=== PATIENT | female | born 1980 | race Caucasian/White ===

== ENCOUNTER → 2016-09-02 | Outpatient (CLI) | payer MEDICARE, MEDICAID | LOC: RAD 12:31 | PROVIDERS: ATTEND Physician Assistant | DX: M25.511 Pain in right shoulder (principal) ==

== ENCOUNTER → 2016-11-21 | Day surgery (SDC) | payer MEDICARE, MEDICAID ==
--- NOTE | 2016-11-21 13:37 | RADIOLOGY REPORT (SQ) ---
EXAM DESCRIPTION: ARTHRO SHOULDER INJECTION COMPLETE DATE/TIME: 11/21/2016 1:23 pm REASON FOR STUDY: L SHOULDER PAIN M25.512 PAIN IN LEFT SHOULDER FINDINGS: Please see combined report for performance of procedure and radiologic supervision and int erpretation. IMPRESSION: Please see combined report for performance of procedure and radiologic supervision and i nterpretation.
--- NOTE | 2016-11-21 13:40 | RADIOLOGY REPORT (SQ) ---
EXAM DESCRIPTION: FLUORO/NEEDLE PLACEMENT COMPLETED DATE/TIME: 11/21/2016 1:23 pm REASON FOR STUDY: L SHOULDER PAIN M25.512 PAIN IN LEFT SHOULDER COMPARISON: None. FLUOROSCOPY TIME: 10 seconds 1 images saved to PACS. LIMITATIONS: None. PROCEDURE: Procedure, risks, benefits and alternatives explained to patient who then gave written co nsent. The left shoulder was marked and a time out was called for correct procedure verification. Po sterior entry site marked using fluoroscopic guidance. Shoulder prepped and draped using sterile danyell hnique. Local anesthesia achieved using 1% lidocaine injection. Hypodermic needle introduced into t he joint space under direct fluoroscopic visualization. Non-ionic contrast instilled to confirm intra -articular position. Dilute gadolinium solution then injected. Needle removed and entry site covered with sterile bandage. No immediate complications noted. TECHNIQUE: Digital images acquired during fluoroscopy and stored on PACS. Patient immediately take n to the MR suite for additional imaging. INJECTION LOCATION: Posterior CONTRAST TYPE AND AMOUNT: 10 mL ProHance solution IMPRESSION: SUCCESSFUL NEEDLE PLACEMENT AND INJECTION FOR left SHOULDER MR ARTHROGRAM USING POSTERIO R APPROACH. COMMENT: Quality ID [id number]: Final reports for procedures using fluoroscopy that document radiation exp osure indices, or exposure time and number of fluorographic images (if radiation exposure indices are not available) TECHNICAL DOCUMENTATION: JOB ID: [id number] [employer]- All Rights Reserved
--- NOTE | 2016-11-22 02:15 | RADIOLOGY REPORT (SQ) ---
EXAM DESCRIPTION: MRI LT UPPER JOINT WITH COMPLETED DATE/TIME: 11/21/2016 2:05 pm REASON FOR STUDY: L SHOULDER PAIN M25.512 PAIN IN LEFT SHOULDER COMPARISON: Plain radiographs TECHNIQUE: Left shoulder images acquired and stored on PACS. Oblique coronal, oblique sagittal, and axial imaging to include fat sensitive sequences as T1, water sensitive sequences as FST2/STIR, and c ontrast sensitive sequences as FST1. LIMITATIONS: None. FINDINGS: JOINT DISTENTION: Adequate distention for interpretation. BONE MARROW AND CORTEX: Normal. No significant osteophytes. No edema or defects. AC JOINT: Type 1 acromion.. No significant AC joint arthropathy. GLENOHUMERAL JOINT: No subluxation or dislocation. No focal chondral defects or reactive bone changes . ROTATOR CUFF: Very mild tendinopathy. No discrete partial full-thickness tear. LABRUM AND BICEPS LABRAL COMPLEX: Fraying of the superior labrum. Middle and superior glenohumeral l igaments intact. Biceps tendon intact. INFERIOR LABRAL COMPLEX: Bony glenoid and labrum intact. IGHL intact without thickening or tear. No p aralabral cysts. ADJACENT SOFT TISSUES: No masses or nodes. OTHER: No other significant finding. IMPRESSION: Mild tendinopathy of the supraspinatus. Fraying of the superior labrum. TECHNICAL DOCUMENTATION: JOB ID: [id number] [employer]- All Rights Reserved
== END ==
LOC: RAD 12:51
PROVIDERS: ATTEND Physician Assistant
PROC: BP09ZZZ Plain Radiography of Left Shoulder (ICD-10-PCS; principal; 2016-11-21)
DX: M25.512 Pain in left shoulder (principal); M25.511 Pain in right shoulder
CPT/HCPCS: 23350; 77002

== ENCOUNTER → 2016-11-24 | Day surgery (SDC) | payer MEDICARE, MEDICAID ==
[~2016-11-24] MED LIST: LIDOCAINE 1% INJ-PF (10 MG/ML) 30 ML SDV ONE
--- NOTE | 2016-11-24 14:03 | RADIOLOGY REPORT (SQ) ---
EXAM DESCRIPTION: ARTHRO SHOULDER INJECTION; FLUORO/NEEDLE PLACEMENT COMPLETED DATE/TIME: 11/24/2016 1:41 pm REASON FOR STUDY: RIGHT SHOULDER PAIN (M25.511) M25.511 PAIN IN RIGHT SHOULDER COMPARISON: None. FLUOROSCOPY TIME: 9 seconds. 1 images saved to PACS. LIMITATIONS: None. PROCEDURE: Procedure, risks, benefits and alternatives explained to patient who then gave written co nsent. The right shoulder was marked and a time out was called for correct procedure verification. P osterior entry site marked using fluoroscopic guidance. Shoulder prepped and draped using sterile te chnique. Local anesthesia achieved using 1% lidocaine injection. Hypodermic needle introduced into the joint space under direct fluoroscopic visualization. Non-ionic contrast instilled to confirm intr a-articular position. Dilute gadolinium solution then injected. Needle removed and entry site covere d with sterile bandage. No immediate complications noted. TECHNIQUE: Digital images acquired during fluoroscopy and stored on PACS. Patient immediately take n to the MR suite for additional imaging. INJECTION LOCATION: Posterior right shoulder. CONTRAST TYPE AND AMOUNT: 1 mL Isovue and 10 mL ProHance saline mixture. IMPRESSION: SUCCESSFUL NEEDLE PLACEMENT AND INJECTION FOR RIGHT SHOULDER MR ARTHROGRAM USING POSTERI OR APPROACH. COMMENT: Quality ID 145: Final reports for procedures using fluoroscopy that document radiation exp osure indices, or exposure time and number of fluorographic images (if radiation exposure indices are not available) TECHNICAL DOCUMENTATION: JOB ID: [id number] [employer]- All Rights Reserved
--- NOTE | 2016-11-24 14:40 | RADIOLOGY REPORT (SQ) ---
EXAM DESCRIPTION: MRI RT UPPER JOINT WITH COMPLETED DATE/TIME: 11/24/2016 2:25 pm REASON FOR STUDY: RIGHT SHOULDER PAIN (M25.511) M25.511 PAIN IN RIGHT SHOULDER COMPARISON: 09/02/2016 TECHNIQUE: Right shoulder images acquired and stored on PACS. Oblique coronal, oblique sagittal, and axial imaging to include fat sensitive sequences as T1, water sensitive sequences as FST2/STIR, and contrast sensitive sequences as FST1. LIMITATIONS: None. FINDINGS: JOINT DISTENTION: Adequate distention for interpretation. No contrast in the subacromial bursa. BONE MARROW AND CORTEX: Normal. No significant osteophytes. No edema or defects. AC JOINT: Type II acromion. No significant AC joint arthropathy. GLENOHUMERAL JOINT: No subluxation or dislocation. No focal chondral defects or reactive bone changes . ROTATOR CUFF: Mild tendinopathy. Small amount of peritendinous fluid anteriorly. LABRUM AND BICEPS LABRAL COMPLEX: Prior slap repair. Distal biceps in normal anatomic location in bic ipital groove. No paralabral cysts. INFERIOR LABRAL COMPLEX: Intact. ADJACENT SOFT TISSUES: No masses or nodes. OTHER: No other significant finding. IMPRESSION: Mild tendinopathy and peritendinitis. No significant rotator cuff tear. Intact slap re pair. TECHNICAL DOCUMENTATION: JOB ID: [id number] [employer]- All Rights Reserved
== END ==
LOC: RAD 12:40
PROVIDERS: ATTEND Physician Assistant
PROC: BP08ZZZ Plain Radiography of Right Shoulder (ICD-10-PCS; principal; 2016-11-24)
DX: M25.511 Pain in right shoulder (principal); M77.9 Enthesopathy, unspecified; M25.512 Pain in left shoulder
CPT/HCPCS: 73222; 77002; 23350; A9576; J3490

== ENCOUNTER 2016-12-02 13:53 | Emergency (ER) | payer MEDICARE, MEDICAID ==
[2016-12-02 14:03] VITALS: BP 124/86
--- NOTE | 2016-12-02 14:27 | ER Document Report ---
ED Medical Screen (RME) - General Chief Complaint: Dizziness Stated Complaint: CHEST PAIN Time Seen by Provider: 12/02/16 14:24 Notes: Patient states that she took a shot for arthritis yesterday for the first time called Alena. States after that she began to have episodes of chest pain shortness of breath and feel very anxious. She is also been lightheaded and dizzy. She states she has had some nausea. No vomiting or diarrhea. Patient states that she has had 3 previous pulmonary embolisms but none for approximately 3-4 years. She states she does not take any blood thinners because everyone she was tried on made her short of breath and made her heart race. TRAVEL OUTSIDE OF THE [place] IN LAST 30 DAYS: No - Related Data Allergies/Adverse Reactions: adhesive tape [Adhesive Tape] Allergy (Verified 07/12/15 18:47) celecoxib [From Celebrex] Allergy (Verified 07/12/15 18:47) ciprofloxacin [From Cipro] Allergy (Verified 07/12/15 18:47) ciprofloxacin HCl [From Cipro] Allergy (Verified 07/12/15 18:47) doxycycline [Doxycycline] Allergy (Verified 07/12/15 18:47) famotidine [Famotidine] Allergy (Verified 07/12/15 18:47) latex [Latex] Allergy (Verified 07/12/15 18:47) nitrofurantoin [Nitrofurantoin] Allergy (Verified 12/02/16 14:16) nitrofurantoin macrocrystalline [From Macrobid] Allergy (Verified 12/02/16 14:16 ) prazepam [Prazepam] Allergy (Verified 12/02/16 14:16) red dye [Red Dye] Allergy (Verified 12/02/16 14:16) sulfamethoxazole [From Bactrim] Allergy (Verified 12/02/16 14:16) tiotropium bromide [From Spiriva with HandiHaler] Allergy (Verified 12/02/16 14: 16) trimethoprim [From Bactrim] Allergy (Verified 12/02/16 14:16) varenicline tartrate [From Chantix] Allergy (Verified 12/02/16 14:16) warfarin [Warfarin] Allergy (Verified 12/02/16 14:16) cyclobenzaprine HCl [From Flexeril] Adverse Reaction (Verified 12/02/16 14:16) duloxetine HCl [From Cymbalta] Adverse Reaction (Verified 12/02/16 14:16) nicotine [Nicotine] Adverse Reaction (Verified 12/02/16 14:16) Past Medical History - Past Medical History Cardiac Medical History: Reports: Hx Pulmonary Embolism Pulmonary Medical History: Reports: Hx Asthma, Hx COPD Renal/ Medical History: Denies: Hx Peritoneal Dialysis Musculoskeltal Medical History: Reports Hx Arthritis - RA and OA Past Surgical History: Reports: Hx Hysterectomy - Immunizations Immunizations up to date: Yes Hx Diphtheria, Pertussis, Tetanus Vaccination: Yes Physical Exam - Vital signs Vitals: Temp Pulse Resp BP Pulse Ox 98.3 F 75 14 124/86 H 99 12/02/16 14:00 12/02/16 14:00 12/02/16 14:00 12/02/16 14:00 12/02/16 14:00 Course - Vital Signs Vital signs: Temp Pulse Resp BP Pulse Ox 98.3 F 75 14 124/86 H 99 12/02/16 14:00 12/02/16 14:00 12/02/16 14:00 12/02/16 14:00 12/02/16 14:00
[2016-12-02 15:42] LABS: APPEARANCE,URINE SLIGHTLY-CLOUDY; BILIRUBIN,URINE SMALL (NEGATIVE); CALCIUM OXALATE CRYSTALS,URINE MODERATE /HPF; GLUCOSE, URINE NEGATIVE (NEGATIVE); KETONES,URINE TRACE mg/dL (NEGATIVE); LEUKOCYTE ESTERASE,URINE NEGATIVE (NEGATIVE); NITRITE,URINE NEGATIVE (NEGATIVE); PROTEIN,URINE NEGATIVE (NEGATIVE); URINE SPECIFIC GRAVITY 1.032
== END 2016-12-02 15:00 | disposition left against medical advice (07) ==
LOC: ER 13:53
DX: R07.9 Chest pain, unspecified (principal); F41.9 Anxiety disorder, unspecified; J44.9 Chronic obstructive pulmonary disease, unspecified; R06.02 Shortness of breath; M19.90 Unspecified osteoarthritis, unspecified site; M06.9 Rheumatoid arthritis, unspecified; R42 Dizziness and giddiness; R11.0 Nausea; Z86.711 Personal history of pulmonary embolism; Z91.048 Other nonmedicinal substance allergy status; Z88.1 Allergy status to other antibiotic agents; Z91.040 Latex allergy status; Z88.8 Allergy status to other drugs, medicaments and biological substances; Z53.20 Procedure and treatment not carried out because of patient's decision for unspecified reasons
CPT/HCPCS: 81001; 99281

== ENCOUNTER 2017-02-22 11:11 | Emergency (ER) | payer MEDICARE, MEDICAID ==
[2017-02-22 11:18] VITALS: BP 120/82
--- NOTE | 2017-02-22 11:30 | ER Document Report ---
ED Medical Screen (RME) - General Chief Complaint: Chest Pain Stated Complaint: CHEST PAIN Time Seen by Provider: 02/22/17 11:24 Notes: 36-year-old female patient who continues to smoke with history of multiple pulmonary emboli and COPD complains of left-sided chest pain and brown productive cough. She reports her roommate started with this illness just over a week ago, and then she caught it. There is no fever. There is no shortness of breath. She does have a history of rheumatoid arthritis. I have greeted and performed a rapid initial assessment of this patient. A comprehensive ED assessment and evaluation of the patient, analysis of test results and completion of the medical decision making process will be conducted by additional ED providers. TRAVEL OUTSIDE OF THE [place] IN LAST 30 DAYS: No - Related Data Allergies/Adverse Reactions: adhesive tape [Adhesive Tape] Allergy (Verified 02/22/17 11:16) celecoxib [From Celebrex] Allergy (Verified 02/22/17 11:16) ciprofloxacin [From Cipro] Allergy (Verified 02/22/17 11:16) ciprofloxacin HCl [From Cipro] Allergy (Verified 02/22/17 11:16) doxycycline [Doxycycline] Allergy (Verified 02/22/17 11:16) famotidine [Famotidine] Allergy (Verified 02/22/17 11:16) latex [Latex] Allergy (Verified 02/22/17 11:16) nitrofurantoin [Nitrofurantoin] Allergy (Verified 02/22/17 11:16) nitrofurantoin macrocrystalline [From Macrobid] Allergy (Verified 02/22/17 11:16 ) prazepam [Prazepam] Allergy (Verified 02/22/17 11:16) red dye [Red Dye] Allergy (Verified 02/22/17 11:16) sulfamethoxazole [From Bactrim] Allergy (Verified 02/22/17 11:16) tiotropium bromide [From Spiriva with HandiHaler] Allergy (Verified 02/22/17 11: 16) trimethoprim [From Bactrim] Allergy (Verified 02/22/17 11:16) varenicline tartrate [From Chantix] Allergy (Verified 02/22/17 11:16) warfarin [Warfarin] Allergy (Verified 02/22/17 11:16) cyclobenzaprine HCl [From Flexeril] Adverse Reaction (Verified 02/22/17 11:16) duloxetine HCl [From Cymbalta] Adverse Reaction (Verified 02/22/17 11:16) nicotine [Nicotine] Adverse Reaction (Verified 02/22/17 11:16) Past Medical History - Past Medical History Cardiac Medical History: Reports: Hx Pulmonary Embolism Pulmonary Medical History: Reports: Hx Asthma, Hx COPD Renal/ Medical History: Denies: Hx Peritoneal Dialysis Musculoskeltal Medical History: Reports Hx Arthritis - RA and OA Past Surgical History: Reports: Hx Hysterectomy - Immunizations Immunizations up to date: Yes Hx Diphtheria, Pertussis, Tetanus Vaccination: Yes Physical Exam - Vital signs Vitals: Temp Pulse Resp BP Pulse Ox 97.9 F 99 20 120/82 98 02/22/17 11:16 02/22/17 11:16 02/22/17 11:16 02/22/17 11:16 02/22/17 11:16 Course - Vital Signs Vital signs: Temp Pulse Resp BP Pulse Ox 97.9 F 99 20 120/82 98 02/22/17 11:16 02/22/17 11:16 02/22/17 11:16 02/22/17 11:16 02/22/17 11:16
[2017-02-22] MEDS ORDERED: PROMETHAZINE HCL 25 MG TABLET PO ONE (12:03)
[2017-02-22] MEDS ORDERED: ALBUTEROL SULFATE 0.083% NEB 2.5 MG/3 ML AMPUL NEB ONE (12:03)
--- NOTE | 2017-02-22 12:06 | ER Document Report ---
HPI - HPI Patient complains to provider of: Chest pain, cough, nausea Onset: Other Onset/Duration: Waxing and waning - 2 days Quality of pain: Achy Pain Level: 4 Context: Patient presents complaining of chest pain off and on for the past 2 days with productive cough with brown sputum. Patient does report sore throat, congestion , and nausea. Patient reports subjective fever since yesterday. Patient does report recent sick contact in the household with upper respiratory symptoms. Patient denies any use of drugs. Patient states she did go to an urgent care yesterday and was told that she had elevated blood pressure at that visit and had a negative strep test in the office and was given a prescription for azithromycin. Patient states she has not picked the prescription up yet. Associated Symptoms: Chest pain - Worse with cough, Productive cough, Fever - Subjective, Rhinnorhea, Sore throat Exacerbated by: Coughing Relieved by: Denies Similar symptoms previously: Yes Recently seen / treated by doctor: Yes - ROS ROS below otherwise negative: Yes Systems Reviewed and Negative: Yes All other systems reviewed and negative - CONSTITUTIONAL Constitutional: REPORTS: Fever, Chills - EENT EENT: REPORTS: Sore Throat, Nasal Drainage-Clear, Congestion - CARDIOVASCULAR Cardiovascular: REPORTS: Chest pain - RESPIRATORY Respiratory: REPORTS: Coughing. DENIES: Trouble Breathing - GASTROINTESTINAL Gastrointestinal: DENIES: Abdominal Pain, Nausea, Patient vomiting - REPRODUCTIVE Reproductive: DENIES: : - MUSCULOSKELETAL Musculoskeletal: DENIES: Back Pain - DERM Skin Color: Normal Skin Problems: None Past Medical History - General Information source: Patient - Social History Smoking Status: Current Every Day Smoker Chew tobacco use (# tins/day): No Frequency of alcohol use: None Drug Abuse: None Occupation: auto parts delivery driver Lives with: Spouse/Significant other Family History: Reviewed & Not Pertinent - Past Medical History Cardiac Medical History: Reports: Hx Pulmonary Embolism Pulmonary Medical History: Reports: Hx Asthma, Hx COPD Renal/ Medical History: Denies: Hx Peritoneal Dialysis Musculoskeltal Medical History: Reports Hx Arthritis - RA and OA Psychiatric Medical History: Reports: Hx Anxiety Past Surgical History: Reports: Hx Gynecologic Surgery - endometrial ablasion, Hx Hysterectomy, Hx Orthopedic Surgery - bilateral shoulder - Immunizations Immunizations up to date: Yes Hx Diphtheria, Pertussis, Tetanus Vaccination: Yes Vertical Provider Document - CONSTITUTIONAL Agree With Documented VS: Yes Exam Limitations: No Limitations General Appearance: WD/WN, No Apparent Distress - INFECTION CONTROL TRAVEL OUTSIDE OF THE [place] IN LAST 30 DAYS: No - HEENT HEENT: Atraumatic, Normocephalic, Pharyngeal Tenderness, Pharyngeal Erythema. negative: Pharyngeal Exudate, Tympanic Membrane Red, Tympanic Membrane Bulging - NECK Neck: Normal Inspection, Supple. negative: Lymphadenopathy-Left, Lymphadenopathy-Right - RESPIRATORY Respiratory: No Respiratory Distress, Wheezing - faint with cough only. negative: Chest Non-Tender - anterior chest tenderness with palpation and cough O2 Sat by Pulse Oximetry: 98 - CARDIOVASCULAR Cardiovascular: Regular Rate, Regular Rhythm, No Murmur - GI/ABDOMEN Gastrointestinal: Abdomen Soft, Abdomen Non-Tender - BACK Back: Normal Inspection. negative: CVA Tenderness-Right, CVA Tenderness-Left - MUSCULOSKELETAL/EXTREMETIES Musculoskeletal/Extremeties: MAEW - NEURO Level of Consciousness: Awake, Alert, Appropriate Motor/Sensory: No Motor Deficit - DERM Integumentary: Warm, Dry, No Rash Course - Re-evaluation Re-evalutation: 02/22/17 12:05 Patient refuses any oral steroids. Patient states that she does not likely her body's response to steroids and that she never takes them for her asthma or her RA. 02/22/17 12:53 Patient refuses any strep testing stating that she had this test performed yesterday and it was negative. Patient refuses any albuterol nebulizer treatment to help with her wheezing stating that she has an inhaler at home that she can use. Patient refuses to collect a sputum specimen stating that she only had a productive cough this morning but cough is no longer productive. Patient states that she does not understand why these things were ordered. Explained to patient that given her history, presentation and exam findings that attempts were made to treat her wheezing symptoms. Offered patient blood work testing to further evaluate her symptoms as she repeatedly states she just wants to know what is going on. Patient advised that she presents with symptoms typical of a viral upper respiratory infection that may be worsening her asthma/COPD symptoms; given her recent sick contact exposure, wheezing and reproducible chest pain symptoms with palpation as well as coughing. Patient declines any blood work testing stating that she will follow-up with her primary doctor as an outpatient as already planned. Patient states that she is concerned because she had elevated blood pressure that was 150 systolic yesterday at the urgent care. Patient advised that her blood pressure today was 120/82. Patient encouraged to keep a log of her vital signs to present to her primary doctor when she follows up. Patient advised that her blood pressure does not presently warrant any treatment at this time. Again patient offered additional testing, patient declines and would like to be discharged home. Consulted with Dr. Larson regarding patient presentation as well as exam findings and diagnostic evaluation. Discussed patient's refusal of testing. Dr. Larson evaluated patient in the provider in triage area and agrees that patient presents with symptoms consistent with an upper respiratory infection. Dr. Larson does not advise any additional testing at this time. - Vital Signs Vital signs: Temp Pulse Resp BP Pulse Ox 97.9 F 99 20 120/82 98 02/22/17 11:16 02/22/17 11:16 02/22/17 11:16 02/22/17 11:16 02/22/17 11:16 - Diagnostic Test Radiology reviewed: Reports reviewed - EKG Interpretation by Id EKG shows normal: Sinus rhythm When compared to previous EKG there are: No significant change Discharge - Discharge Clinical Impression: Bronchospasm Upper respiratory infection Qualifiers: URI type: unspecified URI Qualified Code(s): J06.9 - Acute upper respiratory infection, unspecified Chest pain Qualifiers: Chest pain type: unspecified Qualified Code(s): R07.9 - Chest pain, unspecified Condition: Stable Disposition: HOME, SELF-CARE Instructions: Antinausea Medication ([facility]), Chest Pain of Unclear Cause ([facility]) Additional Instructions: Return immediately for any new or worsening symptoms Followup with your primary care provider, call tomorrow to make a followup appointment Use your albuterol inhaler that you have at home as prescribed Stop smoking Return for any worsening of symptoms or if you would like to continue your diagnostic evaluation UPPER RESPIRATORY ILLNESS: You have a viral infection of the respiratory passages -- a "cold." This common infection causes nasal congestion, drainage, and often sore throat and cough. It is highly contagious. The disease usually lasts about 10 to 14 days. There is no "cure" for the viral infection -- it must run its course. If there is a complication, such as bacterial infection in the nose, sinuses, middle ear, or bronchial tubes, antibiotics may be required. The antibiotics won't affect the virus. Drink plenty of fluids. A humidifier may help. An expectorant medication or decongestant may make you more comfortable. Use acetaminophen or ibuprofen for fever or aches. See the doctor if fever persists over two days, if there is any significant worsening of your symptoms, or if you simply fail to improve as expected. BRONCHOSPASM: You have tightness in the bronchial tubes, called bronchospasm. This often occurs with bronchial infections. Allergies, inhaled chemicals, and polluted or cold air can also provoke bronchospasm. It's more likely in patients with asthma in the family. Emergency treatment of bronchospasm may include adrenaline shots or bronchodilator aerosol. You may feel lightheaded and have a rapid pulse for an hour or two. Rest and get plenty of fluids. At home, we'll treat you with a bronchodilator inhaler. Antibiotics and corticosteroids may be required for some patients. Until you recover, avoid chemical fumes, dusts, pollens, and exercising in very cold or dry air. If you smoke, stop now!! If you develop a fever, increased wheezing, chest pain, or severe shortness of breath, you should contact the doctor immediately. USE OF ACETAMINOPHEN (Tylenol): Acetaminophen may be taken for pain relief or fever control. It's much safer than aspirin, offering a wider range of "safe" dosages. It is safe during . Some brand names are Tylenol, Panadol, Datril, Anacin 3, Tempra, and Liquiprin. Acetaminophen can be repeated every four hours. The following are maximum recommended dosages: >89 pounds or adults 650 mg to 900 mg Acetaminophen can be repeated every four hours. Maximum dose not to exceed 4000 mg a day. SMOKING: If you smoke, you should stop smoking. The tar and chemicals in cigarette smoke are harmful. Smoking has been shown to cause: emphysema chronic bronchitis lung cancer mouth and throat cancer stomach and pancreas cancer premature aging defects In addition, smoking increases ear and lung infections in children of smokers. FOLLOW-UP CARE: If you have been referred to a physician for follow-up care, call the physician s office for an appointment as you were instructed or within the next two days. If you experience worsening or a significant change in your symptoms, notify the physician immediately or return to the Emergency Department at any time for re-evaluation. Prescriptions: Promethazine HCl [Phenergan 25 mg Tablet] 25 mg PO Q6H PRN #10 tablet PRN Reason: Referrals: [facility] [Provider Group] - Follow up as needed [facility] [Provider Group] - Follow up as needed
--- NOTE | 2017-02-22 12:19 | RADIOLOGY REPORT (SQ) ---
EXAM DESCRIPTION: CHEST PA/LAT COMPLETED DATE/TIME: 02/22/2017 11:58 am REASON FOR STUDY: PRODUCTIVE COUGH, lEFT CHEST PAIN COMPARISON: 07/20/2015 EXAM PARAMETERS: NUMBER OF VIEWS: two views TECHNIQUE: Digital Frontal and Lateral radiographic views of the chest acquired. RADIATION DOSE: NA LIMITATIONS: none FINDINGS: LUNGS AND PLEURA: No opacities, masses or pneumothorax. No pleural effusion. MEDIASTINUM AND HILAR STRUCTURES: No masses or contour abnormalities. HEART AND VASCULAR STRUCTURES: Heart normal size. No evidence for failure. BONES: No acute findings. HARDWARE: None in the chest. OTHER: No other significant finding. IMPRESSION: NO SIGNIFICANT RADIOGRAPHIC FINDING IN THE CHEST. TECHNICAL DOCUMENTATION: JOB ID: [id number] [employer]- All Rights Reserved
--- NOTE | 2017-02-22 20:33 | EKG REPORT ---
SEVERITY:- ABNORMAL ECG - SINUS RHYTHM NONSPECIFIC T ABNORMALITIES, INFERIOR LEADS : Confirmed by: Velma Sinha MD 22-Feb-2017 20:32:48
== END 2017-02-22 13:16 | disposition home or self-care (01) ==
LOC: ER 11:11
DX: J02.9 Acute pharyngitis, unspecified (principal); J44.9 Chronic obstructive pulmonary disease, unspecified; J98.01 Acute bronchospasm; R07.9 Chest pain, unspecified; M06.9 Rheumatoid arthritis, unspecified; R05 Cough; R11.0 Nausea; R68.83 Chills (without fever); J34.89 Other specified disorders of nose and nasal sinuses; F17.200 Nicotine dependence, unspecified, uncomplicated; Z86.711 Personal history of pulmonary embolism
CPT/HCPCS: 93005; 99285; 71020; 93010; A9270

== ENCOUNTER 2017-07-28 13:52 | Emergency (ER) | payer MEDICARE, MEDICAID ==
[2017-07-28 14:08] VITALS: BP 130/91
[2017-07-28] MEDS ORDERED: ASPIRIN 81 MG TABLET, CHEWABLE PO ONE (14:43)
--- NOTE | 2017-07-28 14:43 | ER Document Report ---
ED Medical Screen (RME) - General Chief Complaint: Chest Pain Stated Complaint: CHEST PAIN Time Seen by Provider: 07/28/17 14:43 TRAVEL OUTSIDE OF THE [place] IN LAST 30 DAYS: No - Related Data Allergies/Adverse Reactions: adhesive tape [Adhesive Tape] Allergy (Verified 07/28/17 13:53) celecoxib [From Celebrex] Allergy (Verified 07/28/17 13:53) ciprofloxacin [From Cipro] Allergy (Verified 07/28/17 13:53) ciprofloxacin HCl [From Cipro] Allergy (Verified 07/28/17 13:53) doxycycline [Doxycycline] Allergy (Verified 07/28/17 13:53) famotidine [Famotidine] Allergy (Verified 07/28/17 13:53) latex [Latex] Allergy (Verified 07/28/17 13:53) nitrofurantoin [Nitrofurantoin] Allergy (Verified 07/28/17 13:53) nitrofurantoin macrocrystalline [From Macrobid] Allergy (Verified 07/28/17 13:53 ) prazepam [Prazepam] Allergy (Verified 07/28/17 13:53) red dye [Red Dye] Allergy (Verified 07/28/17 13:53) sulfamethoxazole [From Bactrim] Allergy (Verified 07/28/17 13:53) tiotropium bromide [From Spiriva with HandiHaler] Allergy (Verified 07/28/17 13: 53) trimethoprim [From Bactrim] Allergy (Verified 07/28/17 13:53) varenicline tartrate [From Chantix] Allergy (Verified 07/28/17 13:53) warfarin [Warfarin] Allergy (Verified 07/28/17 13:53) cyclobenzaprine HCl [From Flexeril] Adverse Reaction (Verified 07/28/17 13:53) duloxetine HCl [From Cymbalta] Adverse Reaction (Verified 07/28/17 13:53) nicotine [Nicotine] Adverse Reaction (Verified 07/28/17 13:53) Past Medical History - Past Medical History Cardiac Medical History: Reports: Hx Pulmonary Embolism Pulmonary Medical History: Reports: Hx Asthma, Hx COPD Renal/ Medical History: Denies: Hx Peritoneal Dialysis Musculoskeltal Medical History: Reports Hx Arthritis - RA and OA Psychiatric Medical History: Reports: Hx Anxiety Past Surgical History: Reports: Hx Gynecologic Surgery - endometrial ablasion, Hx Hysterectomy, Hx Orthopedic Surgery - bilateral shoulder - Immunizations Immunizations up to date: Yes Hx Diphtheria, Pertussis, Tetanus Vaccination: Yes Physical Exam - Vital signs Vitals: Temp Pulse Resp BP Pulse Ox 98.2 F 85 22 H 130/91 H 99 07/28/17 14:04 07/28/17 14:04 07/28/17 14:04 07/28/17 14:04 07/28/17 14:04 Course - Vital Signs Vital signs: Temp Pulse Resp BP Pulse Ox 98.2 F 85 22 H 130/91 H 99 07/28/17 14:04 07/28/17 14:04 07/28/17 14:04 07/28/17 14:04 07/28/17 14:04
--- NOTE | 2017-07-28 17:23 | EKG REPORT ---
SEVERITY:- BORDERLINE ECG - SINUS RHYTHM BORDERLINE T ABNORMALITIES, DIFFUSE LEADS : Confirmed by: John Sullivan MD 28-Jul-2017 17:22:09
== END 2017-07-28 14:45 | disposition left against medical advice (07) ==
LOC: ER 13:52
DX: Z53.21 Procedure and treatment not carried out due to patient leaving prior to being seen by health care provider (principal)
CPT/HCPCS: 36415; 93005; 93010

== ENCOUNTER → 2020-02-23 | Outpatient (CLI) | payer MEDICARE, MEDICAID ==
--- NOTE | 2020-02-23 18:00 | EKG REPORT ---
SEVERITY:- ABNORMAL ECG - SINUS RHYTHM PROBABLE LEFT ATRIAL ABNORMALITY NONSPECIFIC T ABNORMALITIES, INFERIOR LEADS : Confirmed by: Jonathan Busch MD 23-Feb-2020 17:59:33
== END ==
LOC: OD 12:36
PROVIDERS: ATTEND Pain Medicine Interventional Pain Medicine
DX: I49.9 Cardiac arrhythmia, unspecified (principal)
CPT/HCPCS: 93005; 93010

== ENCOUNTER 2020-03-16 12:57 | Emergency (ER) | payer MEDICARE, MEDICAID ==
[2020-03-16] MEDS ORDERED: METHYLPREDNISOLONE INJ 125 MG/2 ML SDV IV ONE (13:00)
[2020-03-16] MEDS ORDERED: EPINEPHRINE INJ/PF 1 MG/1 ML AMPULE IM ONE (13:00)
[2020-03-16] MEDS ORDERED: DIPHENHYDRAMINE HCL 50 MG/ML VIAL IV ONE (13:02)
--- NOTE | 2020-03-16 13:07 | ER Document Report ---
ED Medical Screen (RME) - General Chief Complaint: Allergic Reaction Stated Complaint: TONGUE SWELLING Time Seen by Provider: 03/16/20 13:00 Primary Care Provider: PARISH MODI MD [Primary Care Provider] - Follow up as needed Mode of Arrival: Wheelchair Information source: Patient Notes: Patient has a swollen tongue. She woke up this morning with a swollen tongue. She states she ate beans fell from a can last night does not know of anything else that we can because in the emerge allergic reaction. States she does smoke a pack a day does not drink or do drugs. Prior medical history is rheumatoid arthritis osteoarthritis Lyme's disease and vitiligo. She is alert and oriented.unable to speak at this time due to the swollen tongue. I have ordered epinephrine Benadryl and Solu-Medrol. She says she is allergic to Pepcid. I have greeted and performed a rapid initial assessment of this patient. A comprehensive ED assessment and evaluation of the patient, analysis of test results and completion of medical decision making process will be conducted by an additional ED providers. TRAVEL OUTSIDE OF THE [place] IN LAST 30 DAYS: No - Related Data Allergies/Adverse Reactions: adhesive tape [Adhesive Tape] Allergy (Verified 07/28/17 13:53) celecoxib [From Celebrex] Allergy (Verified 07/28/17 13:53) ciprofloxacin [From Cipro] Allergy (Verified 07/28/17 13:53) ciprofloxacin HCl [From Cipro] Allergy (Verified 07/28/17 13:53) doxycycline [Doxycycline] Allergy (Verified 07/28/17 13:53) famotidine [Famotidine] Allergy (Verified 07/28/17 13:53) latex [Latex] Allergy (Verified 07/28/17 13:53) nitrofurantoin [Nitrofurantoin] Allergy (Verified 07/28/17 13:53) nitrofurantoin macrocrystalline [From Macrobid] Allergy (Verified 07/28/17 13:53) prazepam [Prazepam] Allergy (Verified 07/28/17 13:53) red dye [Red Dye] Allergy (Verified 07/28/17 13:53) sulfamethoxazole [From Bactrim] Allergy (Verified 07/28/17 13:53) tiotropium bromide [From Spiriva with HandiHaler] Allergy (Verified 07/28/17 13:53) trimethoprim [From Bactrim] Allergy (Verified 07/28/17 13:53) varenicline tartrate [From Chantix] Allergy (Verified 07/28/17 13:53) warfarin [Warfarin] Allergy (Verified 07/28/17 13:53) cyclobenzaprine HCl [From Flexeril] Adverse Reaction (Verified 07/28/17 13:53) duloxetine HCl [From Cymbalta] Adverse Reaction (Verified 07/28/17 13:53) nicotine [Nicotine] Adverse Reaction (Verified 07/28/17 13:53) Past Medical History - Past Medical History Cardiac Medical History: Reports: Hx Pulmonary Embolism Pulmonary Medical History: Reports: Hx Asthma, Hx COPD Renal/ Medical History: Denies: Hx Peritoneal Dialysis Musculoskeltal Medical History: Reports Hx Arthritis - RA and OA Psychiatric Medical History: Reports: Hx Anxiety Past Surgical History: Reports: Hx Gynecologic Surgery - endometrial ablasion, Hx Hysterectomy, Hx Orthopedic Surgery - bilateral shoulder - Immunizations Immunizations up to date: Yes Hx Diphtheria, Pertussis, Tetanus Vaccination: Yes Physical Exam - Vital signs Vitals: Temp Pulse Resp BP Pulse Ox 99.0 F 103 H 18 130/96 H 100 03/16/20 13:00 03/16/20 13:00 03/16/20 13:00 03/16/20 13:00 03/16/20 13:00 Course - Vital Signs Vital signs: Temp Pulse Resp BP Pulse Ox 99.0 F 103 H 18 130/96 H 100 03/16/20 13:00 03/16/20 13:00 03/16/20 13:00 03/16/20 13:00 03/16/20 13:00 Doctor's Discharge - Discharge Referrals: PARISH MODI MD [Primary Care Provider] - Follow up as needed
[2020-03-16] MEDS ORDERED: ALBUTEROL SULFATE 0.083% NEB 2.5 MG/3 ML AMPUL NEB ONE (13:25)
--- NOTE | 2020-03-16 14:52 | ER Document Report ---
Entered by MARK VELASQUEZ SCRIBE 03/16/20 1325 Acting as scribe for:JORDANA LEYVA MD ED General - General Chief Complaint: Allergic Reaction Stated Complaint: TONGUE SWELLING Time Seen by Provider: 03/16/20 13:00 Primary Care Provider: PARISH MODI MD [ACTIVE STAFF] - Follow up as needed Mode of Arrival: Wheelchair Notes: This 39 year old female patient presents to the emergency department today with complaints of tongue swelling prior to arrival. Boyfriend is with the patient and reports that he got a text from the patient stating that when she woke up s he couldn't breathe, feeling like her tongue was swollen. Boyfriend mentions that the patient got her hair done yesterday and he is unsure if the dye could be related to this possible allergic reaction. TRAVEL OUTSIDE OF THE [place] IN LAST 30 DAYS: No - Related Data Allergies/Adverse Reactions: adhesive tape [Adhesive Tape] Allergy (Verified 07/28/17 13:53) celecoxib [From Celebrex] Allergy (Verified 07/28/17 13:53) ciprofloxacin [From Cipro] Allergy (Verified 07/28/17 13:53) ciprofloxacin HCl [From Cipro] Allergy (Verified 07/28/17 13:53) doxycycline [Doxycycline] Allergy (Verified 07/28/17 13:53) famotidine [Famotidine] Allergy (Verified 07/28/17 13:53) latex [Latex] Allergy (Verified 07/28/17 13:53) nitrofurantoin [Nitrofurantoin] Allergy (Verified 07/28/17 13:53) nitrofurantoin macrocrystalline [From Macrobid] Allergy (Verified 07/28/17 13:53) prazepam [Prazepam] Allergy (Verified 07/28/17 13:53) red dye [Red Dye] Allergy (Verified 07/28/17 13:53) sulfamethoxazole [From Bactrim] Allergy (Verified 07/28/17 13:53) tiotropium bromide [From Spiriva with HandiHaler] Allergy (Verified 07/28/17 13:53) trimethoprim [From Bactrim] Allergy (Verified 07/28/17 13:53) varenicline tartrate [From Chantix] Allergy (Verified 07/28/17 13:53) warfarin [Warfarin] Allergy (Verified 07/28/17 13:53) cyclobenzaprine HCl [From Flexeril] Adverse Reaction (Verified 07/28/17 13:53) duloxetine HCl [From Cymbalta] Adverse Reaction (Verified 07/28/17 13:53) nicotine [Nicotine] Adverse Reaction (Verified 07/28/17 13:53) Home Medications: methadone, oxycodone, estradiol, albuterol, quetiapine, gabapentin, tizanidine, eszopiclone Past Medical History - General Information source: Patient - Social History Smoking Status: Current Every Day Smoker Cigarette use (# per day): Yes Chew tobacco use (# tins/day): No Frequency of alcohol use: None Drug Abuse: None Lives with: Family Family History: Reviewed & Not Pertinent - Past Medical History Cardiac Medical History: Reports: Hx Pulmonary Embolism Pulmonary Medical History: Reports: Hx Asthma, Hx COPD Musculoskeletal Medical History: Reports Hx Arthritis - RA and OA Psychiatric Medical History: Reports: Hx Anxiety Past Surgical History: Reports: Hx Gynecologic Surgery - endometrial ablasion, Hx Hysterectomy, Hx Orthopedic Surgery - bilateral shoulder - Immunizations Immunizations up to date: Yes Hx Diphtheria, Pertussis, Tetanus Vaccination: Yes Review of Systems - Review of Systems Constitutional: See HPI, Diaphoresis EENT: See HPI, Other - tongue swelling Cardiovascular: No symptoms reported Respiratory: No symptoms reported Gastrointestinal: No symptoms reported Genitourinary: No symptoms reported Female Genitourinary: No symptoms reported Musculoskeletal: No symptoms reported Skin: No symptoms reported Hematologic/Lymphatic: No symptoms reported Neurological/Psychological: No symptoms reported -: Yes All other systems reviewed and negative Physical Exam - Vital signs Vitals: Temp Pulse Resp BP Pulse Ox 99.0 F 103 H 18 130/96 H 100 03/16/20 13:00 03/16/20 13:00 03/16/20 13:00 03/16/20 13:00 03/16/20 13:00 - Notes Notes: Physical Exam: General: Alert, appears well. HEENT: Normocephalic. Atraumatic. PERRL. Extraocular movements intact. Oropharynx clear, no posterior oropharynx swelling. There is very mild tongue swelling. There is an area on the underside of the tongue that appears to be white plaque or ulceration, patient reports this area is not painful. Indicates she has some mild difficulty with swallowing secretions. The patient does not have any lower teeth. Palpating the undersurface of the tongue and squeezing the tip of the tongue does not cause discomfort. There are no other lesions seen in the oropharynx. The white swelling areas on the underneath surface of the tongue may not be a new finding, as they are not at all tender and she does not feel a foreign body type sensation or swelling to that area. Neck: Supple. Non-tender. Respiratory: No respiratory distress. Clear and equal breath sounds bilaterally. Cardiovascular: Regular rate and rhythm. Abdominal: Normal Inspection. Non-tender. No distension. Normal Bowel Sounds. Back: No gross abnormalities. Extremities: Moves all four extremities. Upper extremities: Normal inspection. Normal ROM. Lower extremities: Normal inspection. No edema. Normal ROM. Neurological: Normal cognition. AAOx4. Normal speech. Psychological: Normal affect. Normal Mood. Skin: Warm. Diaphoretic. Normal color. Course - Re-evaluation Re-evalutation: 03/16/20 15:07 The patient's tongue swelling appears to have gone down a little bit. I gave her a glass of water and she was able to drink it without any difficulty. - Vital Signs Vital signs: Temp Pulse Resp BP Pulse Ox 99.0 F 103 H 14 102/77 96 03/16/20 13:00 03/16/20 13:00 03/16/20 16:01 03/16/20 16:00 03/16/20 16:01 Discharge - Discharge Clinical Impression: Swelling under tongue Condition: Stable Disposition: HOME, SELF-CARE Additional Instructions: Acute Allergic Reaction Your symptoms MAY BE due to an allergic reaction. Allergy can cause hives, swelling of the hands, feet, and face, hoarseness, and difficulty swallowing or breathing. It may be due to exposure to medication, animal dander, foods, infection, or insect bites. Medication is a common cause, even when prior use of this same medication caused no problems. Acute treatment may include adrenalin and antihistamines. Usually, the specific allergic agent can't be identified unless repeated episodes occur. Home treatment includes the following: (1) Stop any suspicious medications. This will be discussed with you. (2) Oral antihistamines for the next four to five days. Example, diphenhydramine (Benadryl) every four hours. (3) You may also use cimetidine (Tagamet), or famotidine (Pepcid) every four hours if diphenhydramine is not controlling itching and hives. (4) Avoid aspirin until the hives completely disappear. (5) Avoid hot baths or showers until the hives are completely gone. Call the doctor if faintness, difficulty swallowing, tightness in the chest, or wheezing occurs. It is difficult to tell if your tongue swelling is due to an acute allergic reaction, angioedema, or a viral type infection. We will treat you with amoxicillin to prevent any bacterial infection. We will treat you with prednisone to suppress any allergic reaction. You should drink plenty of fluids and get plenty of rest. Follow-up with your primary care provider on Thursday for recheck if not completely back to normal. RETURN TO THE EMERGENCY ROOM IF ANY NEW OR WORSENING SYMPTOMS. Prescriptions: Amoxicillin Trihydrate [Amoxil 500 mg Capsule] 500 mg PO TID #21 cap Prednisone [Deltasone 20 mg Tablet] 20 mg PO BID #6 tablet Referrals: HAYDEE MAURER MD [ACTIVE STAFF] - Follow up as needed I personally performed the services described in the documentation, reviewed and edited the documentation which was dictated to the scribe in my presence, and it accurately records my words and actions.
[2020-03-16] MEDS ORDERED: RINGERS SOLUTION,LACTATED 1,000 ML IV ONE (15:07)
[2020-03-16 19:27] VITALS: BP 110/64
== END 2020-03-16 16:30 | disposition home or self-care (01) ==
LOC: ER 12:57
DX: R22.9 Localized swelling, mass and lump, unspecified (principal); R61 Generalized hyperhidrosis; F17.210 Nicotine dependence, cigarettes, uncomplicated; J44.9 Chronic obstructive pulmonary disease, unspecified; Z86.711 Personal history of pulmonary embolism; Z90.710 Acquired absence of both cervix and uterus
CPT/HCPCS: 94640; 99284; 96372; 96361; 96374; 96375; J1200; J0171; J2930; J7120; A9270; J7613